=== PATIENT | male | born 1975 | race Caucasian/White ===

== ENCOUNTER 2018-08-01 12:47 | Emergency (ER) | payer MEDICAID ==
[2018-08-01 13:17] VITALS: BP 112/72
--- NOTE | 2018-08-01 13:52 | EDPHY ---
General Time Seen by Provider: 08/01/18 13:51 Narrative: CHIEF COMPLAINT: Crushed left thumb and car door HISTORY OF PRESENT ILLNESS: Patient presents private vehicle with complaints of crush injury to left thumb. He says he accidentally closed his car door on it just prior to arrival. Moderate bleeding and pain. No numbness. No difficulty bending or straightening the thumb. He has previous injury to this with partial removal of the finger. He has no pain in the ipsilateral hand. No difficulty using the left upper extremity. No other associated complaints or modifying factors. Tetanus up-to-date. TIME OF INJURY: Just prior to arrival TETANUS STATUS: Up-to-date MEDICAL/SURGICAL/SOCIAL HISTORY: Orthopedic injuries, chronic pain REVIEW OF SYSTEMS: Ten systems reviewed and are negative unless otherwise noted in the HPI EXAMINATION: Vitals: Triage VS reviewed General Appearance: Alert, no distress Cardiovascular: Pulses normal throughout. Brisk cap refill Neurological: A&O, sensory symmetric, strength symmetric Skin: Warm and dry, no rash. There is moderate swelling to the left thumb with partial avulsion of the left thumbnail. No laceration of the left thumb. Extremities: Swelling and tenderness of the left thumb with partial nail avulsion. Range of motion fully intact and symmetric to the right upper extremity. No compartment syndrome on the left upper extremity. DIFFERENTIAL DIAGNOSES: Including but not limited to laceration, laceration complication, laceration foreign body, laceration with deep tissue injury MDM: 1:50 p.m. Crush injury to left thumb with subungual hematoma and injury to the nail. No x -ray is evidence of fracture. He is neuro intact with tetanus up-to-date. Have administered a digital block. Irrigation of the wound. I will re- evaluate for nail trephination. 2:05 p.m. Wound has been irrigated re-evaluated. The nail is partially avulsed. I have completed this with excision. The nail bed is intact without injury. We discussed daily wound care, finger splint and follow up with hand surgeon if needed. We discussed ED precautions for infections. Comfortable this plan and discharged home stable condition. PROCEDURE: Digital Block Indication: Finger crush injury Consent: Verbal Location: Left thumb Anesthesia: Lidocaine 1% plain, 0.25% Marcaine plain, 5mL Description: Base of the finger was prepped. The above was infused without difficulty. Tolerated well. Good anesthesia. Complications: None PROCEDURE: Nail removal Consent: Verbal Location: Left thumb nail Complexity: Simple Anesthesia: Digital block Irrigation: Extensive Procedure description: Following good anesthesia and time-out, I completed the left thumbnail avulsion. There was no injury to the nail bed. No pulsatile bleeding. Tolerated well without complication. Suture/Staple material: None Wound care: Routine as discussed SUPERVISION: This patient was independently evaluated without direct involvement of or examination by the attending physician. ED Precautions: Worsening pain. Erythema, edema, cyanosis, pallor, paresthesia or anesthesia. - Diagnostics Imaging Results: Imaging Impressions Finger X-Ray 08/01/18 13:17 Impression: No acute fracture or foreign body. - History Smoking Status: Never smoked - Objective Vital Signs: Initial Vital Signs Temperature (C) 97.3 F 08/01/18 13:14 Heart Rate 62 08/01/18 13:14 Respiratory Rate 18 08/01/18 13:14 Blood Pressure 112/72 08/01/18 13:14 O2 Sat (%) 97 08/01/18 13:14 O2 Delivery Mode Room Air Allergies/Adverse Reactions: shellfish derived Allergy (Verified 08/01/18 13:14) Home Medications: Medication Instructions Recorded NK [No Known Home Meds] 08/01/18 Departure - Departure Disposition: Home, Routine, Self-Care Clinical Impression: Crushing injury of left thumb, initial encounter Nail avulsion, finger Qualifiers: Encounter type: initial encounter Qualified Code(s): S61.309A - Unspecified open wound of unspecified finger with damage to nail, initial encounter Condition: Good Instructions: Nail Avulsion (ED), Crush Injury (ED), Nail Removal (ED) Additional Instructions: 1. Finger splint as needed. Weightbearing as tolerated 2. Irrigate finger with antibacterial soap once or twice daily. Been apply thin layer bacitracin 3. Follow up with hand surgeon for definitive care Referrals: Pablo Peck MD [Medical Doctor] - As per Instructions
== END 2018-08-01 14:15 | disposition home or self-care (01) ==
PROC: 0HDQXZZ Extraction of Finger Nail, External Approach (ICD-10-PCS; principal; 2018-08-01)
DX: S61.102A Unspecified open wound of left thumb with damage to nail, initial encounter (principal); W23.1XXA Caught, crushed, jammed, or pinched between stationary objects, initial encounter